=== PATIENT | male | born 1995 | race Caucasian/White ===

== ENCOUNTER 2018-04-21 14:00 | Emergency (ER) | payer SELFPAY ==
[2018-04-21] MEDS ORDERED: DIPHTH/TETANUS/ACEL. PERTUSSIS IM ONLY ONE (14:15)
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
[2018-04-21 14:58] VITALS: BP 138/110
--- NOTE | 2018-04-21 15:10 | RADIOLOGY IMAGING REPORT ---
FACILITY: PATIENT NAME: London Hill : 1995 MR: [id number] V: [id number] EXAM DATE: ORDERING PHYSICIAN: ABDI RIZO TECHNOLOG[place] [facility] [place] : 1995 Visit/Account:[id number] Date of Sevice: 04/21/2018 HAND LIMITED LEFT Indication: evaluate for FB, Comparison: None. Findings: Bones are normal. Joint spaces are smooth. There is a round foreign body in the soft tissue s on the palmar side of the hand. IMPRESSION: 1. Round foreign body alvarado side of the hand. 2. No evidence of fracture. Report Dictated By: Kilo Oakes at 04/21/2018 2:44 PM Report E-Signed By: Kilo Oakes at 04/21/2018 3:06 PM WSN:[id number]
[2018-04-22] MEDS ORDERED: CEPH500T7 PO (16:02)
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
== END 2018-04-21 15:00 | disposition home or self-care (01) ==
LOC: ER 14:13
PROVIDERS: ATTEND Surgery
DX: S60.552A Superficial foreign body of left hand, initial encounter (principal); W45.8XXA Other foreign body or object entering through skin, initial encounter
CPT/HCPCS: 90471; 90715; 99284

== ENCOUNTER → 2018-04-22 | Outpatient (CLI) | payer SELFPAY ==
[~2018-04-22] MED LIST: CEPH500T7 PO
== END ==
LOC: RAD 13:54
PROVIDERS: ATTEND Surgery
DX: Z02.9 Encounter for administrative examinations, unspecified (principal)